=== PATIENT | male | born 1990 | race African-American/Black ===

== ENCOUNTER 2024-12-29 17:03 | Emergency (ER) | payer SELFPAY ==
[2024-12-29 17:04] VITALS: BP 124/74; PULSE 62; RESP 16; TEMP 37.2; O2SAT 100; BMI 31.8
--- NOTE | 2024-12-29 18:27 | CT_ITS ---
PROCEDURE: SINUS/FACIAL BONE WITH CONTRAS 12/29/2024 REASON FOR EXAM: RIGHT SIDED FACIAL SWELLING TECHNIQUE: SINUS/FACIAL BONE WITH CONTRAS Coronal and Sagittal reconstruction series were provided. CONTRAST: 100 cc of Isovue 370 intravenous contrast. One or more dose reduction techniques were used (e.g., Automated exposure control, adjustment of the mA and/or kV according to patient size, use of iterative reconstruction technique). RADIATION DOSE SUMMARY: CTDlvol: 29 mGy DLP: 658 mGycm COMPARISON: None available. FINDINGS: Frontal: Unremarkable. Ethmoid: Partial opacification of the posterior right ethmoid air cells. Sphenoid: Unremarkable. Maxillary: Moderate mucosal wall thickening of the right maxillary sinus. Turbinates: Unremarkable and symmetric. Nasal Septum: No significant deviation. Mastoids/Middle Ears: Clear. Mild nonspecific diffuse fat stranding over the anterior right cheek area. No enhancing fluid collections to suggest an abscess formation. The visualized orbits and intracranial structures appear unremarkable. No acute maxillofacial bone fracture. CT/Sinus/Facial Bone WITH Contras IMPRESSION: 1. Mild nonspecific fat stranding of the anterior right cheek area. No abscess formation. 2. Moderate right maxillary sinusitis with some involvement of the posterior ri ght ethmoid air cells. Reading Location: [facility]
[2024-12-29 18:44] LABS: Hematocrit 39.2 % (40-54); Hemoglobin 12.1 g/dL (13.0-16.5); Immature Granulocytes Count 0.010 X10^3/uL (0.0-0.0); Mean Corp Hgb Conc 30.9 g/dL (32-36); Mean Corpuscular Volume 74.0 fL (80-94); Mean Platelet Vol. 9.3 fl (6.2-12.0); NRBC Flagged by Analyzer 0 % (0-5); POSITIVE MORPHOLOGY YES; Platelet Count 323 K/mm3 (150-450); RBC Distribution Width CV 14.5 % (11.6-14.6); RBC Distribution Width SD 37.9 fl (35.1-43.9); Red Blood Count 5.30 M/mm3 (4.6-6.2); White Blood Count 6.0 K/mm3 (4.4-11.0)
--- NOTE | 2024-12-29 18:48 | EX.ED.DYSGE1 ---
HPI History of Present Illness Chief Complaint: Edema PFSH PFSH Medical History no medical history Home Medications ?Medication ?Instructions ?Recorded ?Last Taken ?Type amoxicillin 875 mg-potassium 1 tab PO BID #14 tabs 12/29/24 Unknown Rx clavulanate 125 mg tablet Allergy/AdvReac Type Severity Reaction Status Date / Time No Known Allergies Allergy Verified 12/29/24 17:06 Family History no significant family his Surgical History no surgical history Social History Smoking Status: Unknown if ever smoked EXAM Physical Exam Const Vital Signs: 12/29/24 17:04 12/29/24 18:51 12/29/24 20:00 Temperature 99 F 98.9 F Temperature Source Oral Oral Pulse Rate 62 58 L Respiratory Rate 16 16 Respiratory Pattern Normal Blood Pressure 124/74 H 132/91 H Blood Pressure Mean 90 104 Pulse Ox 100 99 Oxygen Delivery Method Room Air Room Air 12/29/24 21:00 12/29/24 21:00 Temperature 98.7 F 98.7 F Temperature Source Oral Pulse Rate 60 60 Respiratory Rate 16 16 Respiratory Pattern Blood Pressure 128/91 H 128/91 H Blood Pressure Mean 103 103 Pulse Ox 100 100 Oxygen Delivery Method Room Air [facility] MDM Narrative Medical decision making narrative: HISTORY OF PRESENT ILLNESS: Chief complaint: Right-sided facial swelling 34-year-old male with no severe past med history presents with facial edema. Notes no injury or dental pain. Notes he may have an abscess. REVIEW OF SYSTEMS: Pertinent positives: Facial swelling Pertinent negatives: Visual disturbance PHYSICAL EXAM: Nursing triage notes reviewed, Vital signs reviewed Constitutional: please see mdm HENT: MMM, swelling over right cheek noted. TTP over right maxillary sinus. Eyes: Pupils equal round and reactive to light, Extraocular muscles intact Neck: No stridor, no JVD, full neck ROM Lungs: Clear to auscultation, No wheezing or rales. No increased work of breathing, no conversational dyspnea, no accessory muscle use, no nasal flaring. No respiratory distress noted Heart: Regular rate and rhythm, No murmurs, No rubs and No gallops, 2+ distal pulses (radial, femoral, posterior tibial) in all extremities Abdomen: Soft, there is no tenderness, rigidity, rebound or guarding, no obvious peritoneal signs, no palpable pulsatile abdominal masses, no auscultated abdominal bruit : No CVAT Extremities: No edema Neuro: No new focal neurological deficits, cranial nerves II through XII intact, 5/5 strength in all present extremities. Intact sensation to light touch in all present extremities, 2+ reflexes bilateral patella tendons. Skin: No rash or lesions noted MEDICAL DECISION MAKING: Chief Complaint: please see HPI External records reviewed: Reviewed prior imaging studies Factors affecting care: none Social determinants of health: none History obtained from others: none Consults: none MDM Narrative: The patient was initially hemodynamically stable, afebrile and nontoxic-appearing. Exam with swelling of the right face I considered the following differential diagnosis: Sinusitis, dental abscess I obtained broad lab and imaging work to further determine if the patient was suffering from a life-threatening etiology. Gave Toradol and Augmentin ALL IMAGES (IF OBTAINED) HAVE BEEN PERSONALLY REVIEWED AND INTERPRETED BY MYSELF. CBC is Oxydose, mild anemia, no thrombocytopenia BMP without evidence of significant electrolyte abnormalities, no anion gap, no acute kidney injury. CT sinus with contrast shows acute sinusitis Gave toradol, augmentin. Will dc with augmentin. The patient and/or family, caregivers express understanding. The patient and/or family, caregivers agrees with the plan. Shared decision making: I will have a discussion with the patient and or visitors regarding risk/benefits of further testing or admission. They will be made aware of of the risk/benefits inherent in this decision they will be given the opportunity to voice understanding. Total critical care time today provided was at least 0 minutes. This excludes separately billable procedures. Critical care time (if documented) is secondary to the patient having high probability of clinically significant/life threatening deterioration in the patient's condition which required my urgent intervention. Impression: 1. Acute sinusitis 2. Acute facial swelling Dispo: discharge This note was generated with [employer] dictation software. It may contain incorrect words, spelling, and punctuation that were not noted in review of the chart prior to signing. Lab Data Labs: Laboratory Results - last 24 hr 12/29/24 18:32 WBC 6.0 RBC 5.30 Hgb 12.1 L Hct 39.2 L MCV 74.0 L MCH 22.8 L MCHC 30.9 L RDW Std Deviation 37.9 RDW Coeff of Juan Manuel 14.5 Plt Count 323 MPV 9.3 Immature Gran % (Auto) 0.200 Neut % (Auto) 63.9 Lymph % (Auto) 27.0 [place] % (Auto) 7.6 Eos % (Auto) 1.0 Baso % (Auto) 0.3 Absolute Neuts (auto) 3.9 Absolute Lymphs (auto) 1.63 Nucleated RBC % 0 Reactive Lymphocytes 1+ Platelet Estimate ADEQUATE Sodium 140 Potassium 3.6 Chloride 103 Carbon Dioxide 27.7 Anion Gap 10 BUN 4 Creatinine 0.91 Estim Creat Clear Calc 122.20 Est GFR (MDRD) Non-Af 115 BUN/Creatinine Ratio 4.2 L Glucose 99 Calcium 9.0 Radiography Diagnostic Testing: Clinical Impression(s) from Imaging Studies Facial/Sinus 12/29/24 18:27 IMPRESSION: 1. Mild nonspecific fat stranding of the anterior right cheek area. No abscess formation. 2. Moderate right maxillary sinusitis with some involvement of the posterior right ethmoid air cells. Reading Location: [facility] Discharge Plan Triage Chief Complaint: Edema ED Provider: Mane Kemp Dx/Rx/DC Orders Instructions: ED Sinusitis (Antibiotic Treatment) Prescriptions: New amoxicillin-pot clavulanate 875-125 mg tablet 1 tab PO BID Qty: 14 0RF Primary Care Provider: [facility] ,Out of Referrals: Monico Ames MD [Med Staff - Engineering Documentation Specialist] - [facility] Doctor,Out of [Primary Care Provider] - Activity Restrictions/Additional Instructions: Thank you for trusting us with your care today! Your CT scan showed evidence of sinus inflammation. We called this sinusitis. There is infection of your sinus cavity. Is treated with antibiotics. Please take Tylenol (2 pills, 650 mg), ibuprofen (2 pills, 400 mg) every 6 hours as needed for pain and fever control. Please take antibiotics until course completed. Please return to the emergency department if your symptoms change or worsen. Please follow with your primary care physician for further outpatient evaluation and management. Print Language: [place]ralt[place] Disposition Disposition: Home, Self Care Discharge Date/Time: 12/29/24 21:46
[2024-12-29 18:52] LABS: Differential Indicated SCAN CRITERIA MET
[2024-12-29 19:03] LABS: Anion Gap 10 (5-15); BUN 4 mg/dL (4-19); BUN/Creat Ratio 4.2 RATIO (10-20); Calcium,Total 9.0 mg/dL (7.6-11.0); Carbon Dioxide 27.7 mmol/L (21.0-32.0); Chloride 103 mmol/L (98-108); Estimated Creatinine Clearance 122.20 ml/min (50-250); Glucose 99 mg/dL (70-99); Potassium 3.6 mmol/L (3.3-5.1)
[2024-12-29 19:44] LABS: Reactive Lymphocyte 1+
[2024-12-29 20:00] VITALS: BP 132/91; PULSE 58; RESP 16; TEMP 37.2; O2SAT 99
[2024-12-29 21:00] VITALS: BP 128/91; PULSE 60; RESP 16; TEMP 37.1; O2SAT 100
== END 2024-12-29 21:46 | disposition home or self-care (01) ==
PROVIDERS: Emergency Provider Emergency Medicine; Visit Provider Emergency Medicine
DX: J01.90 Acute sinusitis, unspecified (principal); R60.0 Localized edema
CPT/HCPCS: 70487; 80048; 85025; 96374; 99283; Q9967; A4216